=== PATIENT | female | born 1965 | race African-American/Black ===

== ENCOUNTER 2017-05-26 11:03 | Inpatient (IN) | payer MEDICARE ==
[~2017-05-26] VITALS: Ht 170.2 cm; Wt 86.9 kg
[2017-05-26 12:04] LABS: Albumin 3.7 g/dL (3.4-5.0); BUN/Creatinine Ratio 12.1; Basophils # (auto) 0.1 uL; Basophils % (auto) 0.7 % (0.0-2.0); Bilirubin, Total 0.4 mg/dL (0.2-1.0); Calcium 8.5 mg/dL (8.5-10.1); Eosinophils # (auto) 0.2 uL; Eosinophils % (auto) 2.1 % (0.0-7.0); Hematocrit 38.3 % (36.0-46.0); Hemoglobin 13.2 g/dL (12.2-16.2); Lymphocytes # (auto) 1.5 uL; Mean Corpuscular Hemoglobin 31.4 pg (28.0-32.0); Mean Corpuscular Hgb Conc. 34.5 g/dL (32.0-36.0); Mean Corpuscular Volume 91.1 fL (80.0-100.0); Mean Platelet Volume 10.7 fL (6.9-10.8); Monocytes # (auto) 0.6 uL; Monocytes % (auto) 7.1 % (0.0-12.0); Neutrophils # (auto) 6.1 uL; Neutrophils % (auto) 72.1 % (37.0-80.0); Nucleated Red Blood Cells % 0.1 %; Platelet Count (auto) 202 10^3/uL (140-450); Potassium 4.6 mmol/L (3.5-5.1); Red Cell Distribution Width 14.9 % (11.8-14.3); Total Protein 7.7 g/dL (6.4-8.2); White Blood Cell 8.4 10^3/uL (4.4-10.8)
[2017-05-26] MEDS ORDERED: diphenhdrAMINE HCL 50 MG/1 ML VL IV ONE (12:15)
[2017-05-26] MEDS ORDERED: HYDROmorphone HCL 2 MG/ML VL IV ONE (12:15)
[2017-05-26] MEDS ORDERED: NITROGLYCERIN 0.2MG/HR TOPICAL PATCH TD ONE (12:30)
[2017-05-26] MEDS ORDERED: NITR0.4S29 SL (12:56)
[2017-05-26] MEDS ORDERED: OXYC-650 (12:56)
[2017-05-26] MEDS ORDERED: ALBU18 (12:56)
[2017-05-26] MEDS ORDERED: ASPI-231 PO (12:56)
[2017-05-26] MEDS ORDERED: BUPR-60 (12:56)
[2017-05-26] MEDS ORDERED: AMLO5TAB2 (12:56)
[2017-05-26] MEDS ORDERED: ISO60SRT (12:56)
[2017-05-26] MEDS ORDERED: GABA-339 (12:56)
[2017-05-26 13:37] LABS: B-Type Natriuretic Peptide 54.57 pg/mL (0-100); Temperature: 23.3 C (20.0-25.0)
[2017-05-26 13:56] LABS: INR 0.95 (0.9-1.15); Partial Thromboplastin Time 27.3 sec (22.64-33.71); Prothrombin Time 10.3 sec (9.37-12.3)
[2017-05-26] MEDS ORDERED: HYDROcodone-ACET 5/325MG TAB PO PRN (14:15)
[2017-05-26] MEDS ORDERED: PROMETHAZINE HCL 25 MG/ML 1ML IV PRN (14:15)
[2017-05-26] MEDS ORDERED: NITROGLYCERIN 0.4 MG SL TAB SL PRN (14:15)
[2017-05-26] MEDS ORDERED: LACTULOSE 20Gm/30ML SOLN PO PRN (14:15)
[2017-05-26] MEDS ORDERED: ALBUTEROL SULF 2.5 MG/0.5ML(0.5%) NEB SOLN NEB PRN (14:15)
[2017-05-26] MEDS ORDERED: TEMAZEPAM 15 MG CAP PO PRN (14:15)
[2017-05-26] MEDS ORDERED: ACETAMINOPHEN 500 MG TAB PO PRN (14:15)
[2017-05-26] MEDS: ENALAPRIL MALEATE 10 MG TAB PO SCH (14:38)
[2017-05-26] MEDS: ENOXAPARIN SOD 80 MG/0.8ML SYRINGE SC SCH ×2 (14:39→22:30)
[2017-05-26] MEDS: METOPROLOL TARTRATE 25 MG TAB PO SCH ×2 (14:39→22:30)
[2017-05-26] MEDS: SODIUM CHLORIDE 0.9% 1,000 ML IV SCH (14:39)
[2017-05-26 16:53] LABS: Amylase 68 U/L (25-115)
[2017-05-26] MEDS: FAMOTIDINE (10MG/ML) 2ML VL IV SCH (17:51)
[2017-05-26] MEDS ORDERED: PATIENTS OWN MEDICATION (Gabapentin 1,200 MG) SCH (18:00)
[2017-05-26] MEDS: GABAPENTIN 300 MG CAP PO SCH ×2 (18:36→22:30)
[2017-05-26] MEDS: IPRATROPIUM BROM 0.5 MG/2.5ML INH SOL NEB SCH (18:45)
[2017-05-26] MEDS: ALBUTEROL SULF 2.5 MG/0.5ML(0.5%) NEB SOLN NEB SCH (18:45)
[2017-05-26] MEDS: ATORVASTATIN 20 MG TAB PO SCH (22:29)
[2017-05-27] MEDS: IPRATROPIUM BROM 0.5 MG/2.5ML INH SOL NEB SCH ×4 (00:04→20:19)
[2017-05-27] MEDS: ALBUTEROL SULF 2.5 MG/0.5ML(0.5%) NEB SOLN NEB SCH ×4 (00:04→20:19)
[2017-05-27 01:11] VITALS: BP 91/51
[2017-05-27] MEDS: SODIUM CHLORIDE 0.9% 1,000 ML IV SCH ×2 (03:52→16:47)
[2017-05-27 04:25] LABS: Basophils # (auto) 0.1 uL; Basophils % (auto) 0.6 % (0.0-2.0); Eosinophils # (auto) 0.3 uL; Eosinophils % (auto) 3.6 % (0.0-7.0); Hematocrit 37.3 % (36.0-46.0); Hemoglobin 12.6 g/dL (12.2-16.2); Lymphocytes # (auto) 2.2 uL; Lymphocytes % (auto) 25.9 % (10.0-50.0); Mean Corpuscular Hemoglobin 31.4 pg (28.0-32.0); Mean Corpuscular Hgb Conc. 33.6 g/dL (32.0-36.0); Mean Corpuscular Volume 93.4 fL (80.0-100.0); Mean Platelet Volume 10.6 fL (6.9-10.8); Monocytes # (auto) 0.9 uL; Monocytes % (auto) 10.5 % (0.0-12.0); Neutrophils # (auto) 5.1 uL; Neutrophils % (auto) 59.4 % (37.0-80.0); Nucleated Red Blood Cells % 0.4 %; Platelet Count (auto) 162 10^3/uL (140-450); Red Cell Distribution Width 14.7 % (11.8-14.3); White Blood Cell 8.6 10^3/uL (4.4-10.8)
[2017-05-27 04:40] LABS: Albumin 3.4 g/dL (3.4-5.0); BUN/Creatinine Ratio 10.4; Bilirubin, Total 0.3 mg/dL (0.2-1.0); Potassium 3.6 mmol/L (3.5-5.1)
[2017-05-27] MEDS: GABAPENTIN 300 MG CAP PO SCH ×4 (06:00→21:45)
[2017-05-27] MEDS: FAMOTIDINE (10MG/ML) 2ML VL IV SCH ×2 (06:00→16:06)
[2017-05-27] MEDS: diphenhdrAMINE HCL 25 MG CAP PO PRN ×2 (09:29→21:55)
[2017-05-27] MEDS: ENALAPRIL MALEATE 10 MG TAB PO SCH (09:30)
[2017-05-27] MEDS: OXYCODONE HCL 5MG TAB PO PRN ×2 (09:31→21:52)
[2017-05-27] MEDS: METOPROLOL TARTRATE 25 MG TAB PO SCH ×2 (09:31→21:46)
[2017-05-27] MEDS: ASPirin-EC 81 mg tab PO SCH (09:32)
[2017-05-27] MEDS: ENOXAPARIN SOD 80 MG/0.8ML SYRINGE SC SCH ×2 (09:33→21:45)
[2017-05-27] MEDS ORDERED: ASPirin 81 mg TAB PO SCH (10:00)
[2017-05-27] MEDS ORDERED: NITROGLYCERIN 0.2MG/HR TOPICAL PATCH TD SCH (10:00)
[2017-05-27] MEDS ORDERED: PANTOPRAZOLE 40 MG TAB PO SCH (10:00)
[2017-05-27 10:01] LABS: Urine Bilirubin Negative (Negative); Urine Blood Negative /uL (Negative); Urine Color Yellow (Yellow); Urine Glucose Normal (Normal); Urine Ketone Negative (Negative); Urine Nitrite POSITIVE (Negative); Urine RBC <1 /hpf (0 - 4); Urine Squamous Epithelial Cell FEW /hpf (<5); Urine Urobilinogen Normal (Negative); Urine pH 5.5 (5.0-8.0)
[2017-05-27 17:09] VITALS: BP 125/72
[2017-05-27 20:00] VITALS: BP 114/68
[2017-05-27] MEDS: ATORVASTATIN 20 MG TAB PO SCH (21:45)
[2017-05-27 22:00] VITALS: BP_SYST 114; BP_SYST 119; BP_DIAS 68; BP_DIAS 73
[2017-05-28] MEDS: ALBUTEROL SULF 2.5 MG/0.5ML(0.5%) NEB SOLN NEB SCH ×4 (00:02→19:40)
[2017-05-28] MEDS: IPRATROPIUM BROM 0.5 MG/2.5ML INH SOL NEB SCH ×4 (00:02→19:40)
[2017-05-28] MEDS: GABAPENTIN 300 MG CAP PO SCH ×4 (04:57→22:15)
[2017-05-28] MEDS: FAMOTIDINE (10MG/ML) 2ML VL IV SCH ×2 (04:57→17:08)
[2017-05-28] MEDS: SODIUM CHLORIDE 0.9% 1,000 ML IV SCH ×2 (04:58→19:42)
[2017-05-28 05:00] VITALS: BP 117/84
[2017-05-28 06:18] LABS: BUN/Creatinine Ratio 12.1; Calcium 8.1 mg/dL (8.5-10.1)
[2017-05-28] MEDS: OXYCODONE HCL 5MG TAB PO PRN ×2 (07:04→22:15)
[2017-05-28] MEDS: diphenhdrAMINE HCL 25 MG CAP PO PRN ×2 (07:05→22:16)
[2017-05-28] MEDS: METOPROLOL TARTRATE 25 MG TAB PO SCH ×2 (09:10→22:15)
[2017-05-28] MEDS: ASPirin-EC 81 mg tab PO SCH (09:11)
[2017-05-28] MEDS: ENOXAPARIN SOD 80 MG/0.8ML SYRINGE SC SCH (09:12)
[2017-05-28] MEDS: ENALAPRIL MALEATE 10 MG TAB PO SCH (09:12)
[2017-05-28] MEDS ORDERED: cefTRIAXone 1GM/50ML D5W 50 ML IV ONE (10:30)
[2017-05-28] MEDS ORDERED: AZITHROMYCIN 500MG/D5W 250ML 250 ML IV ONE (12:15)
[2017-05-28] MEDS: SUCRALFATE 1 GM/10 ML ORAL SUSP GT SCH ×3 (12:19→22:14)
[2017-05-28 22:00] VITALS: BP 127/83
[2017-05-28] MEDS: ATORVASTATIN 20 MG TAB PO SCH (22:14)
[2017-05-28] MEDS: LORazepam 0.5 MG TAB PO PRN (22:15)
[2017-05-29] MEDS: ALBUTEROL SULF 2.5 MG/0.5ML(0.5%) NEB SOLN NEB SCH ×4 (00:28→19:20)
[2017-05-29] MEDS: IPRATROPIUM BROM 0.5 MG/2.5ML INH SOL NEB SCH ×4 (00:28→19:20)
[2017-05-29] MEDS: FAMOTIDINE (10MG/ML) 2ML VL IV SCH ×2 (04:22→17:17)
[2017-05-29 05:00] VITALS: BP 120/80
[2017-05-29] MEDS: diphenhdrAMINE HCL 25 MG CAP PO PRN (05:17)
[2017-05-29] MEDS: LORazepam 0.5 MG TAB PO PRN ×2 (05:17→23:36)
[2017-05-29] MEDS ORDERED: MORPHINE SULF INJ 2 MG/ML SYRINGE 1ML IV PRN (05:45)
[2017-05-29] MEDS ORDERED: NITROGLYCERIN 0.4 MG SL TAB SL PRN (05:45)
[2017-05-29] MEDS ORDERED: MORPHINE SULF INJ 2 MG/ML SYRINGE 1ML ONE (05:45)
[2017-05-29] MEDS: GABAPENTIN 300 MG CAP PO SCH ×4 (06:29→21:21)
[2017-05-29] MEDS: SUCRALFATE 1 GM/10 ML ORAL SUSP GT SCH ×4 (06:53→21:21)
[2017-05-29 08:00] VITALS: BP 135/77
[2017-05-29] MEDS ORDERED: cefTRIAXone 1GM/50ML D5W 50 ML IV SCH (09:00)
[2017-05-29] MEDS: SODIUM CHLORIDE 0.9% 1,000 ML IV SCH ×2 (09:18→21:22)
[2017-05-29] MEDS ORDERED: DILTIAZEM HCL 120MG ER CAP PO SCH (10:00)
[2017-05-29] MEDS ORDERED: AZITHROMYCIN 500MG/D5W 250ML 250 ML IV SCH (10:00)
[2017-05-29] MEDS ORDERED: ENOXAPARIN SOD 40 MG/0.4 ML SYRINGE SC SCH (10:00)
[2017-05-29] MEDS: diphenhdrAMINE HCL 50 MG/1 ML VL IV PRN ×4 (11:00→23:45)
[2017-05-29] MEDS: MORPHINE SULF INJ 2 MG/ML SYRINGE 1ML IV PRN ×4 (11:01→23:45)
[2017-05-29] MEDS: ENALAPRIL MALEATE 10 MG TAB PO SCH (11:08)
[2017-05-29] MEDS: METOPROLOL TARTRATE 25 MG TAB PO SCH ×2 (11:08→21:21)
[2017-05-29] MEDS: ASPirin-EC 81 mg tab PO SCH (11:09)
[2017-05-29 12:00] VITALS: BP 101/63
[2017-05-29 14:43] LABS: Basophils # (auto) 0 uL; Basophils % (auto) 0.4 % (0.0-2.0); Eosinophils # (auto) 0.3 uL; Eosinophils % (auto) 4.4 % (0.0-7.0); Hematocrit 34.9 % (36.0-46.0); Hemoglobin 11.7 g/dL (12.2-16.2); Lymphocytes # (auto) 3.2 uL; Mean Corpuscular Hgb Conc. 33.4 g/dL (32.0-36.0); Mean Corpuscular Volume 92.7 fL (80.0-100.0); Mean Platelet Volume 9.9 fL (6.9-10.8); Monocytes # (auto) 0.6 uL; Monocytes % (auto) 7.9 % (0.0-12.0); Neutrophils # (auto) 3.6 uL; Neutrophils % (auto) 46.3 % (37.0-80.0); Nucleated Red Blood Cells % 0.2 %; Platelet Count (auto) 162 10^3/uL (140-450); Red Cell Distribution Width 14.1 % (11.8-14.3); White Blood Cell 7.8 10^3/uL (4.4-10.8)
[2017-05-29 15:06] LABS: Albumin 3.2 g/dL (3.4-5.0); BUN/Creatinine Ratio 11.9; Bilirubin, Total 0.4 mg/dL (0.2-1.0); Calcium 8.1 mg/dL (8.5-10.1); Potassium 3.9 mmol/L (3.5-5.1); Total Protein 6.8 g/dL (6.4-8.2)
[2017-05-29 17:00] VITALS: BP 110/72
[2017-05-29] MEDS: ATORVASTATIN 20 MG TAB PO SCH (21:21)
[2017-05-29 22:00] VITALS: BP 125/72
[2017-05-30] MEDS: IPRATROPIUM BROM 0.5 MG/2.5ML INH SOL NEB SCH ×2 (00:13→06:52)
[2017-05-30] MEDS: ALBUTEROL SULF 2.5 MG/0.5ML(0.5%) NEB SOLN NEB SCH ×2 (00:13→06:52)
[2017-05-30] MEDS: diphenhdrAMINE HCL 50 MG/1 ML VL IV PRN (04:00)
[2017-05-30] MEDS: FAMOTIDINE (10MG/ML) 2ML VL IV SCH (04:00)
[2017-05-30] MEDS: MORPHINE SULF INJ 2 MG/ML SYRINGE 1ML IV PRN (04:00)
[2017-05-30 05:00] VITALS: BP 115/76
[2017-05-30] MEDS: GABAPENTIN 300 MG CAP PO SCH (06:00)
[2017-05-30] MEDS: SUCRALFATE 1 GM/10 ML ORAL SUSP GT SCH (06:05)
[2017-05-30] MEDS ORDERED: SODIUM CHLORIDE 0.9% 300 ML IV ONE (06:45)
== END 2017-05-30 07:55 | disposition left against medical advice (07) | DRG 280 ==
LOC: ER 11:03 → TELE 11:04 → TELE-CENTR 05-27 15:31 → CENTRAL 05-27 15:31
PROVIDERS: ADMIT Internal Medicine; ATTEND Internal Medicine
DX: I21.4 Non-ST elevation (NSTEMI) myocardial infarction (principal); N17.0 Acute kidney failure with tubular necrosis; N39.0 Urinary tract infection, site not specified; J44.1 Chronic obstructive pulmonary disease with (acute) exacerbation; I42.1 Obstructive hypertrophic cardiomyopathy; I10 Essential (primary) hypertension; K44.9 Diaphragmatic hernia without obstruction or gangrene; Z53.21 Procedure and treatment not carried out due to patient leaving prior to being seen by health care provider; F17.200 Nicotine dependence, unspecified, uncomplicated; R55 Syncope and collapse; I25.10 Atherosclerotic heart disease of native coronary artery without angina pectoris; K21.9 Gastro-esophageal reflux disease without esophagitis; Z89.511 Acquired absence of right leg below knee; Z88.5 Allergy status to narcotic agent; I25.2 Old myocardial infarction; Z88.8 Allergy status to other drugs, medicaments and biological substances; Z91.040 Latex allergy status
CPT/HCPCS: 36415; 71010; 74176; 80048; 80053; 80061; 80307; 81001; 82150; 82550; 83690; 83735; 83880; 84443; 84484; 85025; 85379; 85610; 85652; 85730; 86141; 86850; 86900; 86901; 87086; 87088; 87186; 93005; 93306; 94640; 96374; 96375; 97163; 99291; J0696; J3490